=== PATIENT | female | born 1995 | race Caucasian/White ===

== ENCOUNTER 2019-01-02 16:03 | Emergency (ER) | payer SELFPAY ==
[2019-01-02 16:48] LABS: Bacteria/HPF None Seen HPF (None Seen); Bilirubin Negative (Negative); Blood, Urine 3+ (Negative); Clarity Clear (Clear); Glucose, Urine (Dipstick) Normal (Negative); Leukocyte Negative Leu/uL (Negative); Nitrite Negative (Negative); Protein, Urine (Dipstick) 10 mg/dL (Neg-Trace); RBC/HPF 0-3 HPF (0-3); Squamous Epithelial 0-3 HPF (0-3); Urobilinogen Normal mg/dL (Less than 2); WBC/HPF 0-3 HPF (0-3)
--- NOTE | 2019-01-02 17:36 | ULT ---
Exam: Transabdominal and endovaginal pelvic ultrasound HISTORY:Bleeding. patient.. COMPARISON: None TECHNIQUE: Transabdominal and endovaginal imaging of the pelvis is performed. Ovaries are interrogate d with grayscale, color flow, Doppler imaging and spectral wave form analysis FINDINGS: Uterus: Uterus is identified. No myometrial masses. Uterus measurin.1 x 5.9 x 8.8 cm. Endometrium: Possible anechoic focus occupying the majority endometrium. Possible fluid collection ve rsus atypical appearing gestational sac. Anechoic focus measures 4.7 x 1.4 x 2.4 cm. Yolk sac is not appreciated. There do appear to be due to pole is with a crown-rump length of 0.39 cm and 0 .36 cm. Neither pole demonstrates heart tones. . Free fluid: None Right ovary: Not seen. No obvious free fluid or masses in the right adnexa. Left ovary: 3 separate anechoic foci are noted. Possible cysts occupying the left ovary. Largest cyst measures 2.8 x 2.5 x 2.8 cm Left ovary measurements: 6.0 x 3.5 x 2.7 cm Ovarian Doppler: There is vascular flow to the left ovary. IMPRESSION: Possible twin intrauterine gestation. [place]-rump length suggests twin A having a gestational age of 7 weeks 1 day and twin B have a gestational age of 6 weeks 1 day. Neither pole demonstrates cardiac activity. Follow-up ultrasound and serial beta-hCG studies are recommended. Transcribed Date/Time: 01/02/2019 5:49 PM
[2019-01-02] MEDS ORDERED: Fentanyl 100 MCG/2 ML VIAL ONE (18:24)
[2019-01-02] MEDS ORDERED: Lorazepam 2 MG/ML VIAL ONE (19:35)
== END 2019-01-02 21:11 | disposition home or self-care (01) ==
LOC: ERS 16:03
DX: O03.9 Complete or unspecified spontaneous abortion without complication (principal)
CPT/HCPCS: 36415; 76856; 81003; 81015; 86900; 86901; 96374; 96375; J2060; J3010

== ENCOUNTER 2020-01-18 00:35 | Observation (INO) | payer SELFPAY ==
[2020-01-18] MEDS ORDERED: Dextrose 50% Abboject 50 ML SYRINGE SLOW IVP PRN (02:23)
[2020-01-18] MEDS ORDERED: traMADol HCl 50 MG TAB PO PRN ×2 (02:23)
[2020-01-18] MEDS ORDERED: Dextrose 5% in Water 1,000 ML IV PRN (02:23)
[2020-01-18] MEDS ORDERED: Ondansetron ODT 4 MG TAB PO PRN (02:23)
[2020-01-18] MEDS ORDERED: Ondansetron PF 4 MG/2 ML Vial IVP PRN (02:23)
[2020-01-18] MEDS ORDERED: Cyclobenzaprine 10 MG TAB PO PRN (02:23)
[2020-01-18] MEDS: Acetaminophen 500 MG TAB PO SCH ×3 (04:22→17:28)
[2020-01-18] MEDS: Ibuprofen 600 MG TAB PO SCH ×2 (04:23→12:02)
[2020-01-18] MEDS ORDERED: Sodium Chloride 0.9% 1,000 ML IV SCH (07:00)
--- NOTE | 2020-01-18 08:09 | HP ---
REQUESTING PHYSICIAN: [facility]. CONSULTATIONS: Orthopedics, Dr. Hinojosa. HISTORY OF PRESENT ILLNESS: The patient is a 24-year-old woman, who was riding a hoverboard when it slipped out from underneath her and she landed on her right outstretched arm. She had immediate elbow pain. She was taken to [facility], where she underwent evaluation and examination and was noted to have a radial head fracture. After consultation with our orthopedist, it was determined that she will be transferred to our facility for pain control as they were having difficulty controlling her pain. She arrived early this morning in a splint. She was neurovascularly intact. The patient denied any loss of consciousness or syncopal episodes around her fall. ALLERGIES: PENICILLIN. CURRENT MEDICATIONS: None. PAST SURGICAL HISTORY: [place] teeth. SOCIAL HISTORY: The patient denies drugs or tobacco. Drinks occasionally. She lives at home with family. REVIEW OF SYSTEMS: A 10-point review of systems is negative except otherwise stated. PHYSICAL EXAMINATION: VITAL SIGNS: Temperature is 97.9, heart rate 69, blood pressure 127/82, respirations 14, oxygen saturation 100% on room air. GENERAL: The patient is resting comfortably in bed. She is awake, alert, and oriented. [place] Coma Scale is 15. HEENT: Head is normocephalic. Eyes, extraocular motion intact, PERRLA bilaterally. Ears are atraumatic without discharge. Nose is atraumatic without discharge. Oropharynx is clear. NECK: Nontender. Trachea is midline. No JVD. CHEST: Clear to auscultation with good inspiratory and expiratory effort. HEART: Regular rate and rhythm. ABDOMEN: Soft, flat, nontender with active bowel sounds. PELVIS: Stable. EXTREMITIES: Neurovascularly intact x4. Right upper extremity was immobilized in a long-arm splint, which was taken down, showed small contusion to the right elbow consistent with her fracture. She is neurovascularly intact distally. BACK: Atraumatic and nontender. DIAGNOSTIC STUDIES: There are no labs this morning. Radiograph report from [facility] shows a radial head fracture. We are getting dedicated radiographs here. ASSESSMENT AND PLAN: 1. Status post fall. 2. Radial head fracture by report. 3. Acute pain secondary to above. PLAN: To await Orthopedic's recommendations. On initial discussion, it sounds that this will likely be nonoperative. We will do pain control, pulmonary toilet, gastritis and mechanical VTE prophylaxis. The patient will most likely be able to be discharged home today as her pain control has been better since she has been here. The evaluation, examination, laboratory, and radiographic findings were discussed with the attending. Job ID: [id number]
--- NOTE | 2020-01-18 08:12 | RAD ---
EXAM: 2 views of the right forearm HISTORY: Forearm pain COMPARISON: None FINDINGS: There is an elbow effusion. There is lucency seen through the radial head which could repre sent a nondisplaced radial head fracture. No ulnar fracture is appreciated. IMPRESSION: Possible minimally displaced radial head fracture
--- NOTE | 2020-01-18 08:13 | RAD ---
EXAM: 4 views of the right elbow HISTORY: Elbow pain COMPARISON: None FINDINGS: An elbow effusion is seen. There is lucency seen on one of the views through the radial hea d which could represent a minimally displaced radial head fracture. No significant degenerative changes are seen. Mild soft tissue swelling is present. IMPRESSION: Possible minimally displaced radial head fracture
--- NOTE | 2020-01-18 09:02 | CON ---
DATE OF CONSULTATION: CHIEF COMPLAINT: Right elbow pain. CONSULTING PROVIDER: Marky Pitts PA-C HISTORY OF PRESENT ILLNESS: Ms. Millan is a 24-year-old female who was riding a hoverboard. She fell from this landing on her outstretched arm. She had severe pain. She was seen at [facility], where x-ray showed a nondisplaced radial head fracture. She was transferred over for pain control as they could not get her pain under control at the [facility]. She was admitted overnight for further care. She has been more comfortable now. Her splint has been removed. She has been resting in her bed. She looks fairly comfortable, under no distress currently. PAST MEDICAL HISTORY: Negative. PAST SURGICAL HISTORY: [place] tooth removal. SOCIAL HISTORY: The patient denies tobacco, alcohol, or drug use. REVIEW OF SYSTEMS: Positive for right elbow pain and arm swelling. Otherwise, negative 10-point review of systems. ALLERGIES: TO PENICILLIN, AMOXICILLIN, AND CLAVULANIC ACID. FAMILY MEDICAL HISTORY: Noncontributory. IMAGES: Right elbow x-rays demonstrate a minimally displaced radial head fracture. There is slight impaction of 2 to 3 mm. Overall alignment is preserved. The remainder of the forearm x-ray looks normal. PHYSICAL EXAMINATION: VITAL SIGNS: Temperature is 98.3, pulse is 86, respiratory rate of 18, oxygen saturation 99%, and blood pressure is 121/81. GENERAL: She is alert, lying supine, in no apparent distress. HEENT: Normocephalic and atraumatic. RESPIRATORY: Breathing comfortably. MUSCULOSKELETAL: The patient's right upper extremity has cotton padding, but her splint has otherwise been removed. She is able to flex and extend her digits. She reports normal sensation in the fingertips. She has some discomfort at the elbow with any motion of the elbow. IMPRESSION: Radial head fracture in a patient admitted for pain control, currently improving. PLAN: At this point, I think she would benefit from a well-padded splint and sling. She can be discharged to home later today once her pain is controlled. We would like to see her back in the clinic in approximately 1 week to re-evaluate and to remove her splint to start range of motion. She will continue elevation and continue finger and hand motion. Job ID: [id number]
[2020-01-18] MEDS ORDERED: Fentanyl 100 MCG/2 ML VIAL SLOW IVP SCH (11:00)
[2020-01-18 16:47] VITALS: BP 100/65; TEMP 97.6
--- NOTE | 2020-01-18 19:32 | OP ---
DATE OF PROCEDURE: 01/18/2020 ANESTHESIA: Fentanyl 50 mcg IV. PREPROCEDURE DIAGNOSIS: Right radial head fracture. POSTPROCEDURE DIAGNOSIS: Right radial head fracture. OPERATIVE PROCEDURE: Application of long-arm splint, right arm. PROCEDURE: The patient was positioned appropriately in the seated position. The right upper extremity was then placed in a stockinette, overwrapped with Webril and a posterior fiberglass splint was overwrapped with Afshin bandages and allowed to cure. The patient tolerated the procedure with fentanyl. She remained neurovascular intact both pre and post procedure. Job ID: [id number]
== END 2020-01-18 17:15 | disposition home or self-care (01) ==
LOC: SJJU 00:35
PROVIDERS: ADMIT Surgery; ATTEND Surgery
DX: S52.121A Displaced fracture of head of right radius, initial encounter for closed fracture (principal); Z88.0 Allergy status to penicillin; Z88.1 Allergy status to other antibiotic agents; V00.181A Fall from other rolling-type pedestrian conveyance, initial encounter
CPT/HCPCS: 96374; 96375; G0378; J2405; J3010